=== PATIENT | female | born 1990 | race Caucasian/White ===

== ENCOUNTER 2017-04-03 18:57 | Observation (INO) | payer OTHER ==
[~2017-04-03] VITALS: Ht 165.1 cm; Wt 61.3 kg
[2017-04-03 21:08] VITALS: BP 109/62; PULSE 109; TEMP 98.2
[2017-04-03 21:15] VITALS: BP 109/59; PULSE 106
[2017-04-03 21:30] VITALS: BP 104/62; PULSE 101
[2017-04-03 21:45] VITALS: BP 107/62; PULSE 102
[2017-04-03 22:45] VITALS: BP 105/66; PULSE 100
[2017-04-03 23:45] VITALS: BP 111/66; PULSE 106
[2017-04-04] VITALS (14 sets, daily range): BP systolic 85–108; BP diastolic 38–65; PULSE 71–135; TEMP 97.7–100.9
[2017-04-05 01:40] VITALS: BP 96/52; PULSE 74; TEMP 98.3
[2017-04-05 05:08] VITALS: BP 107/51; PULSE 72; TEMP 97.9
[2017-04-05 09:34] VITALS: BP 111/75; PULSE 72; TEMP 97.9
[2017-04-05 13:21] VITALS: BP 104/66; PULSE 79; TEMP 97.9
[2017-04-06] MEDS ORDERED: NORCO 325 MG-51 TAB PO (10:57)
[2017-04-06] MEDS ORDERED: URISTAT (10:57)
[2017-04-06] MEDS ORDERED: OMNICEF 300MG300 MG PO (16:01)
[2017-04-06] MEDS ORDERED: PERCOCET 325 MG1 TA2 PO (16:01)
== END 2017-04-05 17:23 | disposition home or self-care (01) ==
LOC: SURG 18:57
DX: N20.1 Calculus of ureter (principal)
CPT/HCPCS: A4216; A9284; C1769; C2617; G0378; J0690; J0696; J1100; J1885; J2270; J2405; J2550; J2704; J2765; J3010; J7030; J7070; Q9967

== ENCOUNTER 2017-04-06 10:48 | Emergency (ER) | payer OTHER ==
[~2017-04-06] VITALS: Ht 165.1 cm; Wt 58.2 kg
[2017-04-06] MEDS ORDERED: NORCO 325 MG-51 TAB PO (10:57)
[2017-04-06] MEDS ORDERED: URISTAT (10:57)
[2017-04-06 12:17] LABS: COLLECTION METHOD CLEAN CATCH
[2017-04-06 12:26] LABS: BASO % 0.2 % (0.0-2.0); EOS # 0.2 (0.0-0.7); EOS % 1.8 % (0-4.0); GRAN # 5.4 (1.4-6.5); GRAN % 62.6 % (42.2-75.2); LYMPH # 2.1 (1.2-3.4); LYMPH % 24.7 % (20.0-51.0); MEAN CELL VOLUME 91 fl (80.0-100.0); MEAN CORPUSCULAR HGB CONC 34 g/dl (33.0-37.0); MEAN PLATELET VOLUME 9.5 fl (7.4-10.4); MONO # 0.9 (0.1-0.6); MONO % 10.1 % (1.7-9.3); PLATELET COUNT 162 K/mm3 (130-400); RED BLOOD COUNT 3.67 M/mm3 (4.10-5.30); REDCELL DISTRIBUTION WIDTH-CV 12.2 % (11.5-14.5)
[2017-04-06 12:28] LABS: HEMATOCRIT 33.2 % (37.0-47.0); HEMOGLOBIN 11.2 g/dl (12.5-16.0); MEAN CORPUSCULAR HEMOGLOBIN 31 pg (27.0-31.0)
[2017-04-06 12:31] LABS: ALBUMIN 3.4 gm/dL (3.5-5.0); BILIRUBIN,TOTAL 0.3 mg/dL (0.0-1.0); CALCIUM 8.5 mg/dL (8.4-10.2); CREATININE, serum 0.94 mg/dL (0.52-1.25); POTASSIUM 3.2 mmol/L (3.4-5.0); TOTAL PROTEIN 6.6 gm/dL (6.4-8.2)
[2017-04-06 12:32] LABS: MUCOUS Present /lpf; PH 6 (5-8); SQUAMOUS EPITHELIAL 0-2 /hpf; URINE APPEARANCE Clear; URINE BACTERIA None Seen /hpf; URINE BILIRUBIN Negative (NEGATIVE); URINE BLOOD 3+ (NEGATIVE); URINE COLOR Amber; URINE GLUCOSE Negative (NEGATIVE); URINE KETONE Negative (NEGATIVE); URINE LEUKOCYTE ESTERASE 2+ (NEGATIVE); URINE NITRATE Positive (NEGATIVE); URINE PROTEIN(semi-quant) 2+ (NEGATIVE); URINE RBC >50 /hpf; URINE UROBILINOGEN >=4.0 mg/dL (NEGATIVE)
[2017-04-06] MEDS ORDERED: PERCOCET 325 MG1 TA2 PO (16:01)
[2017-04-06] MEDS ORDERED: OMNICEF 300MG300 MG PO (16:01)
[2017-04-06 16:23] VITALS: BP 144/100; PULSE 81; TEMP 98.7
== END 2017-04-06 16:29 | disposition home or self-care (01) ==
LOC: COL.ER 10:48
PROVIDERS: Emergency Medicine
DX: N39.0 Urinary tract infection, site not specified (principal); N20.0 Calculus of kidney; Z96.0 Presence of urogenital implants
CPT/HCPCS: J0696; J1170; J2405; J7030; J7040

== ENCOUNTER 2017-04-20 20:31 | Inpatient (IN) | payer OTHER ==
[~2017-04-20] VITALS: Ht 165.1 cm; Wt 59.3 kg
[~2017-04-20 20:31] MED LIST: NORCO 325 MG-51 TAB PO; OMNICEF 300MG300 MG PO; PERCOCET 325 MG1 TA2 PO; URISTAT
[2017-04-20 21:21] LABS: COLLECTION METHOD CLEAN CATCH
[2017-04-20 21:25] LABS: BASO # 0.1 (0.0-0.2); BASO % 0.4 % (0.0-2.0); EOS % 0.1 % (0-4.0); GRAN % 83.2 % (42.2-75.2); HEMATOCRIT 40.9 % (37.0-47.0); HEMOGLOBIN 13.9 g/dl (12.5-16.0); LYMPH # 1.3 (1.2-3.4); LYMPH % 9.8 % (20.0-51.0); MEAN CELL VOLUME 87 fl (80.0-100.0); MEAN CORPUSCULAR HEMOGLOBIN 30 pg (27.0-31.0); MEAN CORPUSCULAR HGB CONC 34 g/dl (33.0-37.0); MEAN PLATELET VOLUME 9.1 fl (7.4-10.4); MONO # 0.8 (0.1-0.6); MONO % 6.2 % (1.7-9.3); PLATELET COUNT 327 K/mm3 (130-400); RED BLOOD COUNT 4.69 M/mm3 (4.10-5.30); REDCELL DISTRIBUTION WIDTH-CV 12.5 % (11.5-14.5)
[2017-04-20 21:27] LABS: MUCOUS Present /lpf; PH 5 (5-8); URINE APPEARANCE Clear; URINE BACTERIA None Seen /hpf; URINE BILIRUBIN Negative (NEGATIVE); URINE BLOOD Negative (NEGATIVE); URINE COLOR Yellow; URINE GLUCOSE Negative (NEGATIVE); URINE KETONE Negative (NEGATIVE); URINE LEUKOCYTE ESTERASE Negative (NEGATIVE); URINE NITRATE Negative (NEGATIVE); URINE PROTEIN(semi-quant) Negative (NEGATIVE); URINE RBC 0-2 /hpf; URINE UROBILINOGEN Negative (NEGATIVE)
[2017-04-20 21:35] LABS: ALBUMIN 4.7 gm/dL (3.5-5.0); CALCIUM 9.2 mg/dL (8.4-10.2); CREATININE, serum 0.88 mg/dL (0.52-1.25); POTASSIUM 3.6 mmol/L (3.4-5.0); TOTAL PROTEIN 8.6 gm/dL (6.4-8.2)
[2017-04-20 23:42] VITALS: BP 98/54; PULSE 95; TEMP 97.8
[2017-04-21] VITALS (13 sets, daily range): BP systolic 84–116; BP diastolic 40–85; PULSE 58–94; TEMP 97.4–97.8
[2017-04-21] MEDS ORDERED: NEXPLANON68 MG ID (00:53)
== END 2017-04-21 21:45 | disposition home or self-care (01) | DRG 694 ==
LOC: COL.ER 20:31 → SURG 22:47
PROVIDERS: Emergency Medicine; Urology
PROC: 0TJ98ZZ Inspection of Ureter, Via Natural or Artificial Opening Endoscopic (ICD-10-PCS; principal; 2017-04-21 16:30)
PROC: BT1FZZZ Fluoroscopy of Left Kidney, Ureter and Bladder (ICD-10-PCS; 2017-04-21 16:30)
DX: N20.1 Calculus of ureter (principal); Z87.442 Personal history of urinary calculi
CPT/HCPCS: OP; C1769; G0378; J0690; J1885; J2270; J2405; J2704; J3010; J7030; Q9967

== ENCOUNTER 2017-05-28 10:58 | Emergency (ER) | payer OTHER ==
[~2017-05-28] VITALS: Ht 165.1 cm; Wt 58.2 kg
[~2017-05-28 10:58] MED LIST changes: +NEXPLANON68 MG ID
[2017-05-28] MEDS ORDERED: TRIAMCINOLONE A15 G1 TP (12:18)
[2017-05-28 12:33] VITALS: BP 130/69; PULSE 97; TEMP 98.1
== END 2017-05-28 12:38 | disposition home or self-care (01) ==
LOC: COL.ER 10:58
DX: L25.9 Unspecified contact dermatitis, unspecified cause (principal); Z98.890 Other specified postprocedural states

== ENCOUNTER 2017-09-15 23:33 | Emergency (ER) | payer OTHER ==
[~2017-09-15 23:33] MED LIST changes: +TRIAMCINOLONE A15 G1 TP
[2017-09-15 23:49] VITALS: TEMP 99.6
[2017-09-16 01:28] LABS: BASO % 0.3 % (0.0-2.0); EOS # 0.3 (0.0-0.7); EOS % 2.8 % (0-4.0); GRAN # 4.6 (1.4-6.5); GRAN % 48.7 % (42.2-75.2); HEMOGLOBIN 13.5 g/dl (12.5-16.0); LYMPH # 3.5 (1.2-3.4); LYMPH % 37.5 % (20.0-51.0); MEAN CELL VOLUME 89 fl (80.0-100.0); MEAN CORPUSCULAR HEMOGLOBIN 30 pg (27.0-31.0); MEAN CORPUSCULAR HGB CONC 34 g/dl (33.0-37.0); MEAN PLATELET VOLUME 9.3 fl (7.4-10.4); MONO % 10.3 % (1.7-9.3); PLATELET COUNT 245 K/mm3 (130-400); REDCELL DISTRIBUTION WIDTH-CV 12.6 % (11.5-14.5)
[2017-09-16 01:35] LABS: ALBUMIN 4.2 gm/dL (3.5-5.0); BILIRUBIN,TOTAL 0.5 mg/dL (0.0-1.0); C-REACTIVE PROTEIN 0.5 mg/dL (0.0-0.9); CALCIUM 8.6 mg/dL (8.4-10.2); CREATININE, serum 0.81 mg/dL (0.52-1.25); POTASSIUM 3.9 mmol/L (3.4-5.0); TOTAL PROTEIN 7.7 gm/dL (6.4-8.2)
[2017-09-16 02:14] LABS: COLLECTION METHOD CLEAN CATCH
[2017-09-16 02:22] LABS: MUCOUS Present /lpf; PH 5 (5-8); URINE APPEARANCE Hazy; URINE BACTERIA None Seen /hpf; URINE BILIRUBIN Negative (NEGATIVE); URINE BLOOD 3+ (NEGATIVE); URINE COLOR Yellow; URINE GLUCOSE Negative (NEGATIVE); URINE KETONE Negative (NEGATIVE); URINE LEUKOCYTE ESTERASE Negative (NEGATIVE); URINE NITRATE Negative (NEGATIVE); URINE PROTEIN(semi-quant) 1+ (NEGATIVE); URINE RBC >50 /hpf; URINE UROBILINOGEN Negative (NEGATIVE)
[2017-09-16 03:32] LABS: COLLECTION METHOD CATHETER
[2017-09-16 03:37] LABS: PH 5 (5-8); SQUAMOUS EPITHELIAL 0-2 /hpf; URINE APPEARANCE Clear; URINE BACTERIA None Seen /hpf; URINE BILIRUBIN Negative (NEGATIVE); URINE BLOOD 1+ (NEGATIVE); URINE COLOR Yellow; URINE GLUCOSE Negative (NEGATIVE); URINE KETONE Negative (NEGATIVE); URINE LEUKOCYTE ESTERASE Negative (NEGATIVE); URINE NITRATE Negative (NEGATIVE); URINE PROTEIN(semi-quant) Negative (NEGATIVE); URINE UROBILINOGEN Negative (NEGATIVE)
[2017-09-16] MEDS ORDERED: FLOMAX 0.40.4 MG/CAP PO (04:30)
[2017-09-16] MEDS ORDERED: NORCO 325 MG-51 TAB PO (04:30)
[2017-09-16] MEDS ORDERED: ZOFRAN ODT4 MG PO (04:30)
[2017-09-16 05:19] VITALS: BP 102/69; PULSE 68
== END 2017-09-16 05:15 | disposition home or self-care (01) ==
LOC: COL.ER 23:33
PROVIDERS: Physician Assistant
DX: M54.5 Low back pain (principal); R11.2 Nausea with vomiting, unspecified
CPT/HCPCS: J2405; J3010; J7030

== ENCOUNTER 2017-11-26 22:05 | Emergency (ER) | payer OTHER ==
[~2017-11-26] VITALS: Ht 160 cm; Wt 68.2 kg
[~2017-11-26 22:05] MED LIST changes: +FLOMAX 0.40.4 MG/CAP PO; +ZOFRAN ODT4 MG PO
[2017-11-26 22:09] VITALS: TEMP 97.9
[2017-11-26 22:53] LABS: BASO % 0.3 % (0.0-2.0); EOS # 0.6 (0.0-0.7); EOS % 6.9 % (0-4.0); GRAN # 3.8 (1.4-6.5); HEMATOCRIT 39.6 % (37.0-47.0); HEMOGLOBIN 13.7 g/dl (12.5-16.0); LYMPH # 3.5 (1.2-3.4); LYMPH % 39.1 % (20.0-51.0); MEAN CELL VOLUME 88 fl (80.0-100.0); MEAN CORPUSCULAR HEMOGLOBIN 30 pg (27.0-31.0); MEAN CORPUSCULAR HGB CONC 35 g/dl (33.0-37.0); MEAN PLATELET VOLUME 9.3 fl (7.4-10.4); MONO # 0.9 (0.1-0.6); MONO % 10.5 % (1.7-9.3); PLATELET COUNT 214 K/mm3 (130-400); RED BLOOD COUNT 4.52 M/mm3 (4.10-5.30); REDCELL DISTRIBUTION WIDTH-CV 12.1 % (11.5-14.5)
[2017-11-26 23:06] LABS: ALANINE AMINOTRANSFERASE 29 U/L (9-52); ALBUMIN 4.1 gm/dL (3.5-5.0); ALKALINE PHOSPHATASE 70 U/L (50-136); ANION GAP 7 mmol/L (7-16); AST,SGOT 25 U/L (15-37); BILIRUBIN,TOTAL 0.3 mg/dL (0.0-1.0); BLOOD UREA NITROGEN 11 mg/dL (7-17); C-REACTIVE PROTEIN < 0.5 mg/dL (0.0-0.9); CALCIUM 9.2 mg/dL (8.4-10.2); CARBON DIOXIDE 30 mmol/L (22-30); CHLORIDE 101 mmol/L (98-107); CREATININE, serum 0.73 mg/dL (0.52-1.25); GLUCOSE 79 mg/dL (74-106); LIPASE 76 U/L (23-300); POTASSIUM 3.9 mmol/L (3.4-5.0); SODIUM 138 mmol/L (137-145); TOTAL PROTEIN 7.5 gm/dL (6.4-8.2)
[2017-11-26 23:44] LABS: COLLECTION METHOD CLEAN CATCH
[2017-11-26 23:50] LABS: MUCOUS Present /lpf; PH 6 (5-8); SQUAMOUS EPITHELIAL 0-2 /hpf; URINE APPEARANCE Clear; URINE BACTERIA None Seen /hpf; URINE BILIRUBIN Negative (NEGATIVE); URINE BLOOD Negative (NEGATIVE); URINE COLOR Yellow; URINE GLUCOSE Negative (NEGATIVE); URINE KETONE Negative (NEGATIVE); URINE LEUKOCYTE ESTERASE Negative (NEGATIVE); URINE NITRATE Negative (NEGATIVE); URINE PROTEIN(semi-quant) Negative (NEGATIVE); URINE RBC 0-2 /hpf; URINE UROBILINOGEN Negative (NEGATIVE)
[2017-11-27] MEDS ORDERED: PHENERGAN 25 TA25 MG PO (00:51)
[2017-11-27] MEDS ORDERED: FLEXERIL 1010 MG/TAB PO (00:52)
[2017-11-27 01:36] VITALS: BP 119/73; PULSE 68
== END 2017-11-27 01:34 | disposition home or self-care (01) ==
LOC: COL.ER 22:05
PROVIDERS: Emergency Medicine
DX: M54.5 Low back pain (principal); G43.909 Migraine, unspecified, not intractable, without status migrainosus; Z87.442 Personal history of urinary calculi
CPT/HCPCS: J1170; J1885; J2550; J7030; J7040